=== PATIENT | male | born 1965 | race Two or more races ===

== ENCOUNTER 2018-10-21 10:00 | Outpatient (CLI) | payer OTHER ==
[2018-10-21] MEDS ORDERED: NO HOME MEDS (11:29)
--- NOTE | 2018-10-21 12:18 | NUR ---
Patient ambulated independently from [facility] and was admitted to outpatient wound care for physician visit with Fercho Salgado MD. Wound cleansed. New patient assessment completed with review of patient's medical history and current medications. 1115 - Dr. Salgado at bedside accompanied by RN. Wound assessed by . Plan of care discussed with patient. No dressing ordered or placed. Patient to follow up on an as needed basis. Patient instructed on the signs and symptoms of infection and to call the [facility] if any occur or to go to the ED if we are closed: Increased pain in wound Increase in drainage from the wound Redness in the skin surrounding the wound Bleeding from the wound Temperature of 101 or greater Patient instructed that the weight of their body puts a large amount of pressure on their wounds. This pressure keeps the new tissue from growing and inhibits new blood vessels from forming. Explained that, if they continue to bear weight on a body part that has a wound, the time it takes to heal the wound increases, the wound may get worse or the wound may not heal at all. Patient verbalized understanding of all discharge instructions and plan of care and ambulated independently out to [facility] in stable condition with no sign or symptom of distress at time of discharge.
== END 2018-10-21 11:30 | disposition home or self-care (01) ==
LOC: WOUND CARE 10:00 → EDSTATUS 10:30 → WOUND CARE 11:30
PROVIDERS: ATTEND Surgery
DX: K64.5 Perianal venous thrombosis (principal)
CPT/HCPCS: G0463

== ENCOUNTER 2020-06-08 15:49 | Outpatient (CLI) | payer OTHER ==
[~2020-06-08 15:49] MED LIST: NO HOME MEDS
== END 2020-06-08 23:59 | disposition home or self-care (01) ==
LOC: VAS 15:49
PROVIDERS: ATTEND Internal Medicine
DX: M79.605 Pain in left leg (principal); M79.89 Other specified soft tissue disorders
CPT/HCPCS: 93971

== ENCOUNTER 2022-09-16 11:52 | Day surgery (SDC) | payer BC ==
[2022-09-15 10:02] LABS: BASOPHILS % (AUTO) 0.2 % (0-1); EOSINOPHILS # (AUTO) 0.1 X10'3 (0-0.9); HEMATOCRIT 44.8 % (42.0-52.0); HEMOGLOBIN 14.9 g/dl (14.0-17.9); LYMPHOCYTES # (AUTO) 2.5 X10'3 (1.1-4.8); LYMPHOCYTES % (AUTO) 44.2 % (21-51); MEAN CORPUSCULAR HGB CONC 33.2 g/dL (33.0-36.5); MEAN CORPUSCULAR VOLUME 93.3 FL (78-98); MEAN PLATELET VOLUME 7.8 FL (7.4-10.4); MONOCYTES # (AUTO) 0.5 X10'3 (0-0.9); MONOCYTES % (AUTO) 8.5 % (2-12); NEUTROPHILS # (AUTO) 2.6 X10'3 (1.8-7.7); NEUTROPHILS % (AUTO) 45.1 % (42-75); PLATELET COUNT 219 X10'3 (140-440); RED CELL DISTRIBUTION WIDTH 12.8 % (11.5-14.5); WHITE BLOOD COUNT 5.7 X10'3 (4.5-11.0)
[2022-09-15 10:18] LABS: ALBUMIN 4.4 G/DL (3.4-5.0); ANION GAP 6 (8-16); BLOOD UREA NITROGEN 21 MG/DL (7-18); BUN/CREATININE RATIO 20.6 (5.4-32.0); CALCIUM 9.4 MG/DL (8.5-10.1); CHLORIDE 105 MMOL/L (99-107); CHOL/HDL RATIO 2.6 (0.00-4.99); CHOLESTEROL 143 MG/DL (0-200); CREATININE 1.02 MG/DL (0.60-1.10); GLUCOSE 116 MG/DL (70-104); HDL CHOLESTEROL 54 MG/DL (35-60); LDL CHOLESTEROL 74 MG/DL (50-100); POTASSIUM 4.4 MMOL/L (3.5-5.1); SODIUM 138 MMOL/L (135-145); TOTAL CARBON DIOXIDE 26.8 MMOL/L (24-32); TRIGLYCERIDES 104 MG/DL (20-135); eGFR 75 ML/MIN
[2022-09-15 10:22] LABS: APTT 23 SECONDS (22-32)
[2022-09-16] VITALS (9 sets, daily range): BP systolic 106–162; BP diastolic 50–91
[~2022-09-16] VITALS: Ht 172.7 cm; Wt 126.9 kg
[2022-09-16] MEDS ORDERED: diphenhydrAMINE 25mg capsule PO PRN (12:05)
[2022-09-16] MEDS ORDERED: LORazepam 0.5 MG tablet PO PRN (12:05)
[2022-09-16] MEDS ORDERED: normal saline 1,000 ML IV SCH (12:05)
[2022-09-16] MEDS ORDERED: LOSA100T57 PO (12:13)
[2022-09-16] MEDS ORDERED: ROSU10TA28 PO (12:13)
[2022-09-16] MEDS ORDERED: FURO20TA4 PO (12:13)
[2022-09-16] MEDS ORDERED: nitroGLYCERIN-Tridil 50MG/D5W 250 ML IV ONE (13:58)
[2022-09-16] MEDS ORDERED: fentaNYL/PF 50MCG/1 ML 2ML syringe ONE (13:58)
[2022-09-16] MEDS ORDERED: verapamil 2.5 mg/ml inj IV ONE (13:58)
[2022-09-16] MEDS ORDERED: midazolam 1 mg/ML 2ml injection ONE ×2 (13:58→14:38)
[2022-09-16] MEDS ORDERED: iohexol 350MG/ML 100ml bottle IV ONE ×2 (13:59→15:08)
[2022-09-16] MEDS ORDERED: LIDOcaine 1% (10mg/ml) 2ml vial ONE (13:59)
[2022-09-16] MEDS ORDERED: heparin 1,000unit/ml 10ml vial 10 ML ONE (13:59)
[2022-09-16] MEDS ORDERED: proCHLORperazine 10 MG/2 ml inj ONE (14:34)
[2022-09-16] MEDS ORDERED: HYDROmorphone 1 mg/ml syringe ONE (14:48)
== END 2022-09-16 17:40 | disposition home or self-care (01) ==
LOC: SSTAY O 11:52
PROVIDERS: ATTEND Student in an Organized Health Care Education/Training Program
DX: R94.39 Abnormal result of other cardiovascular function study (principal); I25.10 Atherosclerotic heart disease of native coronary artery without angina pectoris; E66.9 Obesity, unspecified; Z68.41 Body mass index [BMI] 40.0-44.9, adult; I10 Essential (primary) hypertension; G47.33 Obstructive sleep apnea (adult) (pediatric); Z79.899 Other long term (current) drug therapy; Z79.01 Long term (current) use of anticoagulants
CPT/HCPCS: 36415; 80048; 80061; 85025; 85610; 85730; 93005; 93458; 99152; 99153; A6258; C1769; C1894; J0780; J1170; J1644; J2250; J3010; J3490; J7030; Q0163; Q9967; A6402